=== PATIENT | female | born 1985 | race African-American/Black ===

== ENCOUNTER 2020-01-29 04:54 | Inpatient (IN) ==
[2020-01-29 05:47] LABS: Apearance,Urine CLEAR (Clear); Bacteria,Urine Occasional /HPF (Few); Bilirubin,Urine Negative (Negative); Blood, Urine Negative (Negative); Glucose,Urine (UA) Negative (Negative); Ketones,Urine Negative (Negative); Mucus,Urine Occasional /LPF (Occasional); Nitrite,Urine Negative (Negative); Protein,Urine Negative; RBC,Urine <1 /HPF (0-4); Squamous Epithelial Cell,Urine Occasional /HPF (0-10); Urine Color Yellow (Yellow); Urine Specific Gravity 1.013 (1.001-1.035); Urine Urobilinogen < 2.0 EU/DL (0.2-1.0); WBC,Urine 2 /HPF (0-6)
[2020-01-29] MEDS ORDERED: MEPERIDINE 50 MG/1 ML VIAL IV PRN (07:40)
[2020-01-29] MEDS ORDERED: ONDANSETRON 4 MG/2 ML VIAL IV PRN ×2 (07:40→12:49)
[2020-01-29] MEDS ORDERED: BUTORPHANOL 2 MG/ML VIAL IV PRN (07:40)
[2020-01-29] MEDS ORDERED: OXYTOCIN/LR 20 UNIT/1,000 ML BAG IV SCH (08:00)
[2020-01-29 08:05] LABS: Basophils # 0.1 10*3/uL (0.0-0.2); Basophils % 0.6 % (0.0-0.8); Eosinophils % 0.4 % (0.00-10.9); Hemoglobin 10.2 GM/DL (12.0-16.0); Immature Granulocytes % 0.4 %; Immature Granulocytes Absolute 0.04 #; Lymphocytes # 2.7 10*3/uL (1.4-4.0); Mean Corpuscular HGB Conc 30.9 GM/DL (32-36); Mean Corpuscular Volume 75.5 FL (87-102); Mean Platelet Volume 10.3 FL (9.6-12.0); Monocytes % 8.6 % (1.7-12.7); Platelet Count 247 T/CUMM (130-400); Red Blood Count 4.37 MC/CUMM (3.8-5.5); Red Cell Distribution Width 15.7 % (9.3-17.3); White Blood Count 10.7 T/CUMM (4-12)
[2020-01-29] MEDS: LACTATED RINGERS 1,000 ML IV SCH ×2 (08:19→09:25)
[2020-01-29] MEDS ORDERED: ePHEDrine 50 MG/ML VIAL IV PRN (08:47)
[2020-01-29] MEDS ORDERED: LACTATED RINGERS 1,000 ML IV ONE (08:47)
[2020-01-29] MEDS ORDERED: hydrOXYzine HCL 25 MG/1 ML VIAL IM PRN (08:47)
[2020-01-29] MEDS ORDERED: NALOXONE 0.4 MG/ML VIAL IV PRN (08:47)
[2020-01-29] MEDS ORDERED: FAMOTIDINE 20 MG/2 ML VIAL IV ONE (08:47)
[2020-01-29] MEDS ORDERED: CITRIC ACID/SODIUM CITRATE 30 ML UDCUP PO ONE (08:47)
[2020-01-29] MEDS ORDERED: diphenhydrAMINE 50 MG/1 ML VIAL IV PRN ×2 (08:47)
[2020-01-29] MEDS ORDERED: PROMETHAZINE 25 MG/1 ML VIAL IM ONE (08:47)
[2020-01-29] MEDS ORDERED: LACTATED RINGERS 1,000 ML IV SCH (09:00)
[2020-01-29] MEDS ORDERED: fentaNYL 2 MCG/ROPIV 0.2% EPID 100 ML EPIDURAL SCH (09:00)
[2020-01-29] MEDS ORDERED: miSOPROStoL 200 MCG TABLET ONE (09:35)
[2020-01-29] MEDS ORDERED: TRANEXAMIC ACID 1,000 MG/10 ML VIAL ONE (09:35)
[2020-01-29] MEDS ORDERED: SODIUM CHLORIDE 0.9% 0 ML IV ONE (09:35)
[2020-01-29] MEDS ORDERED: OXYTOCIN/LR 20 UNIT/1,000 ML BAG IV ONE ×2 (09:35→12:49)
[2020-01-29] MEDS ORDERED: LIDOCAINE 1% 50 ML VIAL ONE (09:35)
[2020-01-29] MEDS ORDERED: CARBOPROST TROMETHAMINE 250 MCG/ML AMP IM ONE (09:36)
[2020-01-29] MEDS ORDERED: METHYLERGONOVINE 0.2 MG/1 ML AMP ONE (09:36)
[2020-01-29 10:09] LABS: Apearance,Urine CLEAR (Clear); Bacteria,Urine Occasional /HPF (Few); Bilirubin,Urine Negative (Negative); Blood, Urine Negative (Negative); Glucose,Urine (UA) Negative (Negative); Ketones,Urine Negative (Negative); Mucus,Urine Few /LPF (Occasional); Nitrite,Urine Negative (Negative); Protein,Urine Negative; RBC,Urine 1 /HPF (0-4); Squamous Epithelial Cell,Urine Occasional /HPF (0-10); Urine Color Yellow (Yellow); Urine Specific Gravity 1.019 (1.001-1.035); Urine Urobilinogen < 2.0 EU/DL (0.2-1.0); WBC,Urine <1 /HPF (0-6)
[2020-01-29] MEDS ORDERED: oxyCODONE/ACETAMINOPHEN 5-325 MG TABLET PO PRN ×2 (12:49)
[2020-01-29] MEDS ORDERED: WITCH HAZEL PADS 100/JAR TOP PRN (12:49)
[2020-01-29] MEDS ORDERED: BENZOCAINE 20%/MENTHOL 0.5% SPRAY 56 GM CAN TOP PRN (12:49)
[2020-01-29] MEDS ORDERED: LANOLIN 50% CREAM 0.3 OZ TUBE TOP PRN (12:49)
[2020-01-29] MEDS ORDERED: BISACODYL 10 MG SUPP RECTAL PRN (12:49)
[2020-01-29] MEDS ORDERED: HYDROCORTISONE 2.5% RECTAL CREAM 30 GM TUBE TOP PRN (12:49)
[2020-01-29] MEDS ORDERED: ACETAMINOPHEN 325 MG TABLET PO PRN (12:49)
[2020-01-29] MEDS ORDERED: MEASLES/MUMPS/RUBELLA VACCINE 0.5 ML VIAL SUBCUT ONE (12:49)
[2020-01-29] MEDS ORDERED: DIPH/TET/ACEL PERT BOOSTER VACCINE 0.5 ML VIAL IM ONE (12:49)
[2020-01-29] MEDS ORDERED: RHO(D) IMMUNE GLOBULIN 300 MCG SYRINGE IM ONE (12:49)
[2020-01-29] MEDS: DOCUSATE SODIUM 100 MG CAPSULE PO SCH (21:56)
[2020-01-29] MEDS: IBUPROFEN 800 MG TABLET PO PRN (21:57)
[2020-01-30 05:13] LABS: Basophils # 0.1 10*3/uL (0.0-0.2); Basophils % 0.5 % (0.0-0.8); Eosinophils # 0.1 10*3/uL (0.0-0.87); Hematocrit 34.5 VOL% (35.7-47.0); Hemoglobin 10.7 GM/DL (12.0-16.0); Immature Granulocytes % 0.3 %; Immature Granulocytes Absolute 0.04 #; Lymphocytes # 4.1 10*3/uL (1.4-4.0); Lymphocytes % 29.8 % (21.3-54.2); Mean Corpuscular Volume 75.3 FL (87-102); Mean Platelet Volume 9.9 FL (9.6-12.0); Monocytes % 7.6 % (1.7-12.7); Neutrophils % 60.8 % (38.7-73.9); Platelet Count 233 T/CUMM (130-400); Red Blood Count 4.58 MC/CUMM (3.8-5.5); Red Cell Distribution Width 15.9 % (9.3-17.3); White Blood Count 13.6 T/CUMM (4-12)
[2020-01-30] MEDS: DOCUSATE SODIUM 100 MG CAPSULE PO SCH ×2 (09:08→20:40)
[2020-01-30] MEDS ORDERED: BISACODYL 5 MG TABLET PO PRN (17:50)
[2020-01-30] MEDS: IBUPROFEN 800 MG TABLET PO PRN (17:55)
[2020-01-31] MEDS: DOCUSATE SODIUM 100 MG CAPSULE PO SCH (09:04)
[2020-01-31] MEDS: IBUPROFEN 800 MG TABLET PO PRN (09:04)
[2020-01-31 09:21] VITALS: BP 115/70
== END 2020-01-31 12:30 | disposition home or self-care (01) | DRG 807 ==
LOC: N.LDOUT 04:54 → N.LD 04:55 → N.OB 16:05
PROVIDERS: ADMIT Specialist; ATTEND Specialist

== ENCOUNTER 2021-09-19 05:36 | Inpatient (IN) ==
[2021-09-19 06:21] LABS: Bacteria,Urine Occasional /HPF (Few); Bilirubin,Urine Negative (Negative); Blood, Urine Trace mg/dL (Negative); Glucose,Urine (UA) Negative (Negative); Ketones,Urine Negative (Negative); Mucus,Urine Few /LPF (Occasional); Nitrite,Urine Negative (Negative); Protein,Urine 30 mg/dL (Negative); RBC,Urine 7 /HPF (0-4); Squamous Epithelial Cell,Urine Many /HPF (0-10); Urine Appearance Clear (Clear); Urine Color Yellow (Yellow); Urine Specific Gravity > 1.030 (1.001-1.035); Urine Urobilinogen 0.2 eU/dL (<2.0); Urine pH 6.5 (4.5-8.0)
[2021-09-19] MEDS ORDERED: OXYTOCIN/LR 20 UNIT/1,000 ML BAG IV ONE ×3 (06:23→11:38)
[2021-09-19] MEDS ORDERED: LACTATED RINGERS 500 ML IV PRN (06:23)
[2021-09-19] MEDS ORDERED: LACTATED RINGERS 250 ML IV ONE (06:23)
[2021-09-19] MEDS ORDERED: ONDANSETRON 4 MG/2 ML VIAL IV PRN (06:23)
[2021-09-19] MEDS ORDERED: TRANEXAMIC ACID 1,000 MG in SODIUM CHLORIDE 0.9% 100 ML IV PRN (06:23)
[2021-09-19] MEDS ORDERED: METHYLERGONOVINE 0.2 MG/1 ML AMP IM PRN (06:23)
[2021-09-19] MEDS ORDERED: ACETAMINOPHEN 325 MG TABLET PO PRN (06:23)
[2021-09-19] MEDS ORDERED: miSOPROStoL 200 MCG TABLET RECTAL PRN (06:23)
[2021-09-19] MEDS ORDERED: CARBOPROST TROMETHAMINE 250 MCG/ML AMP IM PRN (06:23)
[2021-09-19] MEDS ORDERED: BUTORPHANOL 2 MG/ML VIAL IV PRN (06:23)
[2021-09-19] MEDS ORDERED: MEPERIDINE 50 MG/1 ML VIAL IV PRN (06:23)
[2021-09-19] MEDS ORDERED: LACTATED RINGERS 1,000 ML IV SCH (06:30)
[2021-09-19 06:37] LABS: Basophils % 0.4 % (0.0-0.8); Eosinophils % 0.4 % (0.00-10.9); Hematocrit 34.9 VOL% (35.7-47.0); Hemoglobin 10.7 GM/DL (12.0-16.0); Immature Granulocytes % 0.5 %; Immature Granulocytes Absolute 0.05 #; Lymphocytes # 2.2 10*3/uL (1.4-4.0); Lymphocytes % 24.1 % (21.3-54.2); Mean Corpuscular HGB Conc 30.7 GM/DL (32-36); Mean Corpuscular Volume 73.2 FL (87-102); Mean Platelet Volume 10.2 FL (9.6-12.0); Monocytes # 0.7 10*3/uL (0.11-0.8); Monocytes % 7.6 % (1.7-12.7); Platelet Count 256 T/CUMM (130-400); Red Blood Count 4.77 MC/CUMM (3.8-5.5); Red Cell Distribution Width 15.6 % (9.3-17.3); White Blood Count 9.2 T/CUMM (4-12)
[2021-09-19] MEDS ORDERED: miSOPROStoL 200 MCG TABLET ONE (06:40)
[2021-09-19] MEDS ORDERED: TRANEXAMIC ACID 1,000 MG/10 ML VIAL ONE (06:40)
[2021-09-19] MEDS ORDERED: SODIUM CHLORIDE 0.9% 0 ML IV ONE (06:40)
[2021-09-19] MEDS ORDERED: METHYLERGONOVINE 0.2 MG/1 ML AMP ONE (06:41)
[2021-09-19] MEDS ORDERED: CARBOPROST TROMETHAMINE 250 MCG/ML AMP IM ONE (06:41)
[2021-09-19 06:56] LABS: Alanine Aminotransferase 25 U/L (13-56); Albumin 2.6 G/DL (3.4-5.0); Alkaline Phosphatase 153 U/L (45-117); Aspartate Amino Transferase 26 U/L (0-37); Bilirubin,Total < 0.39 MG/DL (0.20-1.00); Blood Urea Nitrogen 6 MG/DL (7-18); Calcium 8.6 MG/DL (8.5-10.1); Carbon Dioxide 22 MMOL/L (21-32); Chloride 109 MMOL/L (98-107); Estimated Glom Filtration Rate 171 ML/MIN; Glucose 88 MG/DL (74-106); Osmolality,Calculated 275.4 MOS/KG (273-304); Potassium 3.3 MMOL/L (3.5-5.1); Sodium 140 MMOL/L (136-145); Total Protein 7.3 G/DL (6.4-8.2)
[2021-09-19] MEDS ORDERED: LIDOCAINE 2% 20 ML VIAL ONE (06:56)
[2021-09-19 07:20] LABS: Cord Arterial Blood HCO3 20.1 MMOL/L; Cord Venous Blood HCO3 22.3 MMOL/L; Cord Venous Blood PCO2 38.1 MMHG; Cord Venous Blood PO2 31.6 MMHG
[2021-09-19] MEDS: IBUPROFEN 800 MG TABLET PO PRN ×2 (12:21→22:15)
[2021-09-19] MEDS: POTASSIUM CHLORIDE 20 MEQ TABLET PO PRN ×3 (16:20→22:23)
[2021-09-19] MEDS: DOCUSATE SODIUM 100 MG CAPSULE PO SCH (20:35)
[2021-09-19] MEDS ORDERED: BENZOCAINE 20%/MENTHOL 0.5% SPRAY 56 GM CAN TOP PRN (21:36)
[2021-09-20 06:56] LABS: Basophils # 0.1 10*3/uL (0.0-0.2); Basophils % 0.6 % (0.0-0.8); Eosinophils # 0.1 10*3/uL (0.0-0.87); Eosinophils % 0.8 % (0.00-10.9); Hematocrit 25.6 VOL% (35.7-47.0); Hemoglobin 7.6 GM/DL (12.0-16.0); Immature Granulocytes % 0.4 %; Immature Granulocytes Absolute 0.05 #; Lymphocytes # 4.1 10*3/uL (1.4-4.0); Lymphocytes % 34.4 % (21.3-54.2); Mean Corpuscular HGB Conc 29.7 GM/DL (32-36); Mean Corpuscular Volume 73.8 FL (87-102); Mean Platelet Volume 10.6 FL (9.6-12.0); Monocytes # 0.9 10*3/uL (0.11-0.8); Monocytes % 7.5 % (1.7-12.7); Neutrophils % 56.3 % (38.7-73.9); Platelet Count 228 T/CUMM (130-400); Red Blood Count 3.47 MC/CUMM (3.8-5.5); Red Cell Distribution Width 15.6 % (9.3-17.3); White Blood Count 11.8 T/CUMM (4-12)
[2021-09-20] MEDS: MULTIVITAMIN (PRENATAL) TABLET PO SCH (08:41)
[2021-09-20] MEDS: DOCUSATE SODIUM 100 MG CAPSULE PO SCH ×2 (08:41→21:36)
[2021-09-20] MEDS: IRON (CARBONYL)/VIT C/B12/FA TABLET PO SCH (16:49)
[2021-09-21] MEDS: IBUPROFEN 800 MG TABLET PO PRN (00:56)
[2021-09-21 07:11] VITALS: BP 123/76
[2021-09-21] MEDS: IRON (CARBONYL)/VIT C/B12/FA TABLET PO SCH ×2 (07:50→08:05)
[2021-09-21] MEDS: MULTIVITAMIN (PRENATAL) TABLET PO SCH ×2 (07:50→08:05)
[2021-09-21] MEDS: DOCUSATE SODIUM 100 MG CAPSULE PO SCH ×2 (07:51→08:05)
[2021-09-21] MEDS ORDERED: DIPH/TET/ACEL PERT BOOSTER VACCINE 0.5 ML VIAL IM ONE (09:30)
== END 2021-09-21 11:15 | disposition home or self-care (01) | DRG 807 ==
LOC: N.LD 05:36 → N.OB 10:39
PROVIDERS: ADMIT Obstetrics & Gynecology; ATTEND Obstetrics & Gynecology